=== PATIENT | male | born 1975 | race African-American/Black ===

== ENCOUNTER 2018-10-20 09:34 | Emergency (ER) | payer SELFPAY ==
[~2018-10-20] VITALS: Ht 182.9 cm; Wt 113.4 kg
[2018-10-20] MEDS ORDERED: ZITHROMAX250 MG PO (13:02)
[2018-10-20] MEDS ORDERED: ULTRAM50 MG PO (13:02)
== END 2018-10-20 13:27 | disposition home or self-care (01) ==
LOC: ED 09:34
DX: M60.9 Myositis, unspecified (principal); J06.9 Acute upper respiratory infection, unspecified; I10 Essential (primary) hypertension; F17.200 Nicotine dependence, unspecified, uncomplicated
CPT/HCPCS: 74177; 80053; 85025; 87502; 96361; 99284-25; 99406; J1885; J2405; J7030; Q9967